=== PATIENT | male | born 1980 | race Caucasian/White ===

== ENCOUNTER 2017-07-05 05:42 | Emergency (ER) | payer BC ==
[~2017-07-05] VITALS: Ht 182.9 cm; Wt 120.2 kg
[~2017-07-05 05:42] MED LIST: BACTRIM DS TABL1 TA2 PO; PANTOPRAZOLE SO40 MG PO; PROTONIX20 MG PO; VICODIN PO
[2017-07-05] MEDS ORDERED: BP MED (05:55)
== END 2017-07-05 07:00 | disposition home or self-care (01) ==
LOC: SED 05:42
DX: J03.00 Acute streptococcal tonsillitis, unspecified (principal); M79.1 Myalgia; Z79.899 Other long term (current) drug therapy
CPT/HCPCS: 87880; 99283